=== PATIENT | male | born 1980 | race Caucasian/White ===

== ENCOUNTER → 2017-10-02 | Outpatient (CLI) | payer OTHER ==
[2017-10-02 13:49] LABS: BASOPHILS ABSOLUTE AUTO 0.03 K/mm3 (0.00-0.23); BASOPHILS PERCENT AUTO 1 % (0-2); EOSINOPHILS PERCENT AUTO 2 % (0-6); Hematocrit 44.5 % (37.0-53.0); Hemoglobin 15.3 g/dL (13.5-17.5); Mean Corpuscular HGB 29.9 pg (26.0-34.0); Mean Corpuscular HGB Conc 34.4 g/dL (31.5-36.5); Mean Corpuscular Volume 87 fL (80-100); Mean Platelet Volume 9.8 fL (9.1-12.4); Platelet Count 239 K/mm3 (150-400); RDW Standard Deviation 38.4 fL (35.1-46.3); Red Blood Cell Count 5.12 M/mm3 (4.30-5.90); White Blood Cell Count 5.59 K/mm3 (4.00-11.30)
[2017-10-02 13:50] LABS: IMMATURE GRAN ABSOLUTE AUTO 0.02 K/mm3 (0.00-0.10); IMMATURE GRAN PERCENT AUTO 0 % (0-1); LYMPHOCYTES ABSOLUTE AUTO 1.04 K/mm3 (0.84-5.20); LYMPHOCYTES PERCENT AUTO 19 % (21-46); MONOCYTES ABSOLUTE AUTO 0.44 K/mm3 (0.16-1.47); MONOCYTES PERCENT AUTO 8 % (4-13); NEUTROPHILS ABSOLUTE AUTO 3.96 K/mm3 (1.96-9.15); NEUTROPHILS PERCENT AUTO 71 % (41-73)
[2017-10-02 14:01] LABS: Alanine Aminotransfer (ALT/SGP 37 U/L (12-78); Albumin, Blood 4.4 g/dL (3.4-5.0); Albumin/Globulin Ratio 1.2 (0.8-1.8); Alk Phos 53 U/L (40-126); Anion Gap 9 mmol/L (6-16); Aspartate Aminotrans (AST/SGOT 31 U/L (12-37); Bilirubin, Total 0.5 mg/dL (0.1-1.0); Blood Urea Nitrogen 12 mg/dL (8-24); CO2, Blood 26 mmol/L (21-32); Calcium, Blood 8.8 mg/dL (8.5-10.1); Chloride, Blood 104 mmol/L (98-108); Creatinine, Blood 0.86 mg/dL (0.60-1.20); Globulin, Blood 3.8 g/dL (2.2-4.0); Glomerular Filtration Rate >60 (60-); Glucose, Blood 97 mg/dL (70-99); Sodium, Blood 139 mmol/L (136-145); Total Protein, Blood 8.2 g/dL (6.4-8.2)
== END | disposition home or self-care (01) ==
LOC: LAB EV 13:45
PROVIDERS: Physician Assistant Medical
DX: R10.31 Right lower quadrant pain (principal)
CPT/HCPCS: 80053; 85025

== ENCOUNTER 2019-04-25 06:02 | Day surgery (SDC) | payer OTHER ==
[~2019-04-25] VITALS: Ht 177.8 cm; Wt 85.6 kg
[~2019-04-25 06:02] MED LIST: ADVIL PO; VITAMIN B122500 MCG PO; Vitamin C100 M1 PO
--- NOTE | 2019-04-25 06:42 | NUR ---
History, Chart, Medications and Allergies reviewed before start of procedure. Patient confirms NPO status and agrees with scheduled surgery. Lungs clear T/O to Auscultation. Patient reports completing Chlorhexadine shower X2 prior to admission to hospital. Patient States Post-Procedure ride home has been arranged. Pre-Op teaching done. Pt verbalizes understanding.
--- NOTE | 2019-04-25 06:42 | NUR ---
PATIENT REMOVED WEDDING RING AND PLACED IT IN A MARKED CLEAR SEALED BAGGIE AND THEN INTO HIS BELONGINGS.
--- NOTE | 2019-04-25 07:32 | NUR ---
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
--- NOTE | 2019-04-25 07:32 | NUR ---
PATIENT VOIDED IMMEDIATELY PRIOR TO SURGERY, ANTICIPATE NO MACKAY PLACEMENT.
--- NOTE | 2019-04-25 08:43 | NUR ---
04/25/19 0843 Bobbi James PLACED BY Diogenes RUELAS RN INTRAOPERATIVELY
--- NOTE | 2019-04-25 11:40 | NUR ---
INTO STEP VIA RAMESH. PT A&OX3-REPORTS 5-6/10 ABDOMINAL PAIN. DENIES NAUSEA. 4x4 WITH CLEAR OCCLUSIVE DRESSING TO ABDOMEN X 4-ALL DRESSINGS C/D/I. MED WITH FENTANYL 50 MCG IVPX1 FOR PAIN. SATS DOWN TO 88% AFTER PT MED WITH FENTANYL-PLACED ON O2 VIA NASAL CANULA-TITRATE TO KEEP SATS>90%.
--- NOTE | 2019-04-25 11:59 | NUR ---
PT RESTING QUIETLY WHEN NOT DISTURBED. SATS 95-97% ON 2 LITERS NASAL CANULA.
--- NOTE | 2019-04-25 12:13 | NUR ---
PT CONTINUES TO REPORT 5/10 ABDOMINAL PAIN. GIVEN ZOFRAN 4 MG IVP X 1 FOR INTERMITTENT NAUSEA, THEN GIVEN SODA CRACKERS AND NORCO 5/325 MG 2 TABS PO FOR PAIN.
--- NOTE | 2019-04-25 13:57 | NUR ---
PATIENT DESIRED TO GO HOME TO WAIT FOR THE CALL FROM DR VALENZUELA. PAIN IS NOW UNDER CONTROL. PATIENT ABLE TO DRESS INDEPENDENTLY AND WAS STEADY AT DISCHARGE HOME. GIVEN OUR NUMBER IN CASE SHE HAS NOT HEARD FROM THE DOCTOR BY [id number]. MENTIONED THAT SHE HAS NOT GIVEN THE DETAILS OF THE FINDINGS OF THE SURGERY. I ASKED IF SHE WAS COMFORTABLE WITH WAITING TO HEAR FROM THE DOCTOR AND TAKING HIM HOME TO REST THERE, SHE INDICATED WITH A NOD THAT IT WAS ACCEPTABLE. PATIENT CLINICALLY READY FOR DISCHARGE, DECISION WAS MADE A TEAM TO D/C HOME IN THE CARE OF HIS TO AWAIT FURTHER DISCUSSION BETWEEN THE PATIENT AND HIS PHYSICIAN, DR VALENZUELA. PATIENT'S CONFIRMED THAT DR VALENZUELA HAD SPOKEN IN DETAIL WITH HER, BUT HAD NOT TALKED TO PATIENT EXCEPT TO TELL HIM THAT HIS WAS HERE PRIOR TO GOING BACK TO THE OR FOR HIS NEXT CASE.
== END 2019-04-25 23:09 | disposition home or self-care (01) ==
LOC: ORSCMMR 06:02 → ORD 07:30 → ORSCMMR 23:09
PROVIDERS: Surgery
PROC: 0WJJ4ZZ Inspection of Pelvic Cavity, Percutaneous Endoscopic Approach (ICD-10-PCS; principal; 2019-04-25 07:30)
DX: K40.90 Unilateral inguinal hernia, without obstruction or gangrene, not specified as recurrent (principal); K65.0 Generalized (acute) peritonitis; I10 Essential (primary) hypertension; Z87.891 Personal history of nicotine dependence
CPT/HCPCS: 87070; 87075; 87205; 88305; 88341; 88342; A9270-GY; J0690; J1100; J2250; J2405; J2704; J3010; J7120

== ENCOUNTER 2019-09-12 06:10 | Day surgery (SDC) | payer OTHER ==
[~2019-09-12] VITALS: Ht 172 cm; Wt 86.1 kg
--- NOTE | 2019-09-12 06:51 | NUR ---
Ambulatory in Day Surgery History, Chart, Medications and Allergies reviewed before start of procedure.Patient confirms NPO status and agrees with scheduled surgery. Lungs clear T/O to Auscultation. Patient reports completing Chlorhexadine shower X2 prior to admission to hospital.Surgical site prepped with 2% Chlorhexidine cloth wipe.
--- NOTE | 2019-09-12 11:19 | NUR ---
Patient up to Ambulate independently. Gait steady. Discharge instructions reviewed with patient. Patient verbalizes understanding. Copy given to patient to take home. TOLERATING PO. USED RESTROOM WITH NO ISSUES. AWAITING 'S ARRIVAL TO DISCHARGE.
--- NOTE | 2019-09-12 11:38 | NUR ---
Discharged via wheelchair to private car for ride home WITH
== END 2019-09-12 11:28 | disposition home or self-care (01) ==
LOC: ORSCMMR 06:10 → ORD 07:30 → ORSCMMR 11:28
PROVIDERS: Surgery
PROC: 0YU60JZ Supplement Left Inguinal Region with Synthetic Substitute, Open Approach (ICD-10-PCS; principal; 2019-09-12 07:30)
DX: K40.90 Unilateral inguinal hernia, without obstruction or gangrene, not specified as recurrent (principal); I10 Essential (primary) hypertension; Z87.891 Personal history of nicotine dependence
CPT/HCPCS: A9270-GY; C1781; J0690; J1100; J2250; J2405; J2704; J3010; J7120